=== PATIENT | female | born 1990 | race Caucasian/White ===

== ENCOUNTER 2016-03-28 06:26 | Inpatient (IN) | payer OTHER ==
[~2016-03-28] VITALS: Ht 165.1 cm; Wt 72.1 kg
[2016-03-28] VITALS (17 sets, daily range): BP systolic 83–137; BP diastolic 59–92; PULSE 69–264; RESP 16–20; TEMP 97.4–99
[~2016-03-28 06:26] MED LIST: ALBU1AER INH; FIORIC PO
[2016-03-28 07:53] LABS: AUTOMATED NEUTROPHIL # 5.2 TH/MM3 (1.8-7.7); BASOPHIL % 0.4 % (0.0-2.0); EOSINOPHIL # 0.1 TH/MM3 (0-0.4); EOSINOPHIL % 0.7 % (0.0-4.0); HEMATOCRIT 35.8 % (35.0-46.0); HEMO FLAGS DIFF FINAL; LYMPH % 24.2 % (9.0-44.0); LYMPHOCYTE # 1.9 TH/MM3 (1.0-4.8); MEAN CORPUSCULAR HGB CONC 34.8 % (32.0-36.0); MONO % 7.5 % (0.0-8.0); NEUT % 67.2 % (16.0-70.0); PLATELET COUNT 182 TH/MM3 (150-450); RED BLOOD COUNT 4.03 MIL/MM3 (4.00-5.30); RED CELL DISTRIBUTION WIDTH 13.3 % (11.6-17.2); WHITE BLOOD COUNT 7.8 TH/MM3 (4.0-11.0)
[2016-03-28] MEDS ORDERED: PREN29TA PO (07:54)
[2016-03-28] MEDS ORDERED: FERR1TAB36 PO (07:54)
[2016-03-28 08:19] LABS: BACTERIA, URINE MOD /hpf; BLOOD, URINE NEG (NEG); GLUCOSE,URINE NEG (NEG); KETONE, URINE NEG (NEG); MUCUS URINE FEW /lpf (OCC); NITRITE,URINE NEG (NEG); PH, URINE 6.5 (5.0-8.5); SQUAMOUS EPITHELIAL CELL URINE 15 /hpf (0-5); URINE COLOR YELLOW (YELLW/STRAW)
[2016-03-28 08:23] LABS: COMMENT (UR) CULTURE INDICATED; CULTURE IF INDICATED CULTURE INDICATED
[2016-03-28] MEDS ORDERED: CITRIC ACID-SODIUM CITRATE LIQ 30 ML UDC PO SCH (08:30)
[2016-03-28] MEDS ORDERED: NS 1000 ML IV PRN (08:30)
[2016-03-28] MEDS ORDERED: OXYTOCIN 30 UNITS/NS 500ML PREMIX IV SCH (08:30)
[2016-03-28] MEDS ORDERED: LACTATED RINGER'S 1000 ML BOLUS IV PRN (08:30)
[2016-03-28] MEDS ORDERED: MINERAL OIL 10 ML VIAL TOP PRN (08:30)
[2016-03-28] MEDS ORDERED: OXYTOCIN 30 UNITS 500ML PREMIX IV ONE (08:30)
[2016-03-28] MEDS ORDERED: LIDOCAINE HCL 1% 50 ML VIAL INFIL PRN (08:30)
[2016-03-28] MEDS ORDERED: LIDOCAINE HCL 1% 50 ML VIAL I-DERMAL PRN (08:30)
[2016-03-28] MEDS ORDERED: NS 500 ML BOLUS IV PRN (08:30)
[2016-03-28] MEDS ORDERED: ONDANSETRON HCL 4 MG/2 ML VIAL IV PRN (08:30)
[2016-03-28] MEDS: LACTATED RINGER'S 1000 ML IV SCH ×2 (09:14→13:37)
[2016-03-28] MEDS ORDERED: METHYLERGONOVINE MALEATE 0.2 MG/ML VIAL ONE (11:03)
[2016-03-28] MEDS ORDERED: SODIUM CHLORIDE 0.9% FLUSH 5 ML FLUSH IV PRN (11:15)
[2016-03-28] MEDS ORDERED: ZOLPIDEM TARTRATE 5 MG TAB PO PRN (11:15)
[2016-03-28] MEDS ORDERED: BENZOCAINE 20% TOPICAL SPRAY 60 ML CAN TOPICAL PRN (11:15)
[2016-03-28] MEDS ORDERED: WITCH HAZEL 50%/GLYCERIN 12.5% 40 PAD JAR TOPICAL PRN (11:15)
[2016-03-28] MEDS ORDERED: oxyCODONE/ACETAMINOPHEN 5 MG/325 MG TAB PO PRN ×2 (11:15)
[2016-03-28] MEDS ORDERED: IBUPROFEN 600 MG TAB PO PRN (11:15)
[2016-03-28] MEDS ORDERED: ACETAMINOPHEN 325 MG TAB PO PRN (11:15)
[2016-03-28] MEDS ORDERED: ALUMINUM/MAGNESIUM/SIMETH 30 ML CUP PO PRN (11:15)
[2016-03-28] MEDS ORDERED: DOCUSATE SODIUM 50 MG/SENNA 8.6 MG TAB PO PRN (11:15)
[2016-03-28] MEDS ORDERED: ONDANSETRON ODT 4 MG TAB PO PRN (11:15)
--- NOTE | 2016-03-28 11:19 | MH ---
cc: BLAINE SHIELDS DATE OF ADMISSION: 03/28/2016 ADMITTING DIAGNOSIS Term . HISTORY OF PRESENT ILLNESS The patient is a 25-year-old white female para 1-0-0-1 with a LMP of 06/24/2015, EDC of 03/30/2016. Her course was benign. PAST MEDICAL HISTORY PREVIOUS SURGERY None. MEDICATIONS Vitamins. ALLERGIES None. TRANSFUSIONS None. SOCIAL HISTORY History of migraines. OBSTETRICAL HISTORY One previous vaginal delivery. SOCIAL HISTORY She is , student, education major. Alcohol, tobacco and drugs are none. PHYSICAL EXAMINATION GENERAL: A gravid white female in no distress. HEENT EXAM: Normal. CHEST: Clear. HEART: Regular rate. BREASTS: Symmetrical. ABDOMEN: Gravid. EFW is 3400 grams. PELVIC EXAM: The cervix is 5, 70. Vertex intact to palpation. LABORATORY DATA Strep culture negative. AROM performed. PLAN Pitocin induction. Epidural anesthesia. Anticipate vaginal delivery. Should she have failure to progress or distress, will need . MD NANCY Zhu/LOTUS /8:34 AM /11:00 AM DEION
[2016-03-28] MEDS ORDERED: MEASLES, MUMPS, RUBELLA VACCINE 0.5 ML VIAL SQ ONE (16:00)
[2016-03-28] MEDS ORDERED: DIPHTH/TETANUS/ACEL PERTUSSIS (BOOSTER) 0.5 ML VIAL/PFS IM ONE (16:00)
[2016-03-28] MEDS ORDERED: SODIUM CHLORIDE 0.9% FLUSH 5 ML FLUSH IV SCH (21:00)
[2016-03-29 04:54] LABS: AUTOMATED NEUTROPHIL # 8.1 TH/MM3 (1.8-7.7); BASOPHIL % 0.3 % (0.0-2.0); EOSINOPHIL # 0.1 TH/MM3 (0-0.4); EOSINOPHIL % 0.6 % (0.0-4.0); HEMATOCRIT 35.1 % (35.0-46.0); HEMO FLAGS DIFF FINAL; LYMPH % 21.8 % (9.0-44.0); LYMPHOCYTE # 2.5 TH/MM3 (1.0-4.8); MEAN CELL VOLUME 90.9 FL (80.0-100.0); MEAN CORPUSCULAR HEMOGLOBIN 30.2 PG (27.0-34.0); MEAN CORPUSCULAR HGB CONC 33.2 % (32.0-36.0); MONO % 7.3 % (0.0-8.0); PLATELET COUNT 183 TH/MM3 (150-450); RED BLOOD COUNT 3.87 MIL/MM3 (4.00-5.30); RED CELL DISTRIBUTION WIDTH 13.6 % (11.6-17.2); WHITE BLOOD COUNT 11.6 TH/MM3 (4.0-11.0)
[2016-03-29 07:11] VITALS: BP 96/62; PULSE 80; RESP 16; TEMP 98.6
[2016-03-29] MEDS: LACTATED RINGER'S 1000 ML IV SCH (08:17)
--- NOTE | 2016-03-29 12:13 | HHI.DCPOC ---
Discharge Care Plan Report Symptoms to Your Doctor -Temperate above 100.5 degrees -Redness, of incision or excessive or foul smelling drainage -Unusual pain or calf pain -Increased vaginal bleeding -Painful or difficulty urinating -Feelings of extreme sadness or anxiety after 2 weeks Goals to Promote Your Health * To prevent worsening of your condition and complications * To maintain your health at the optimal level Directions to Meet Your Goals Take your medications as prescribed Follow your dietary instruction Follow activity as directed Ensure plenty of rest for recovery Drink fluids for hydration Keep your appointments as scheduled Take your immunizations and boosters as scheduled If your symptoms worsen call your PCP, if no PCP go to Urgent Care Center or Emergency Room Smoking is Dangerous to Your Health. Avoid second hand smoke Call the 24-hour crisis hotline for domestic abuse at Isaac Pandey MD Mar 29, 2016 12:13
--- NOTE | 2016-04-06 07:43 | MD ---
cc: BLAINE SHIELDS M.D. ADMISSION DATE: 03/28/2016 DISCHARGE DATE: 03/29/2016 ADMISSION DIAGNOSIS Term . DISCHARGE DIAGNOSIS Term , delivered. HISTORY OF PRESENT ILLNESS The patient is a 25-year-old white female, para 1-0-0-1, with an LMP of 06/24/2015, EDC of 03/30/2016. Her course was benign. Blood type positive. Strep culture negative. HOSPITAL COURSE Admitted for induction of labor due to term status and extremely favorableable cervix. She was admitted on the morning of 03/28/2016, received Pitocin induction, AROM and promptly delivered 3 hours later, a viable, vigorous male over an intact perineum. did well, was discharged home in excellent condition on 03/29/2016. She was carefully instructed in perineal and circumcision care. The baby had a pustular rash, diagnosed with melanosis pustules which were felt to be benign and would heal spontaneously leaving mild pigmentation with no treatment needed. He was cleared for circumcision by the pediatricians. She was carefully instructed to return to see me in 6 weeks and to call if any abnormal symptoms and to call if any problems with circumcision healing. MD NANCY Zhu/LOTUS /12:29 PM /7:30 AM [email or web address]
== END 2016-03-29 14:51 | disposition home or self-care (01) | DRG 775 ==
LOC: H2EA 06:26 → H1EA 13:36
PROVIDERS: ADMIT Obstetrics & Gynecology; ATTEND Obstetrics & Gynecology
PROC: 3E033VJ Introduction of Other Hormone into Peripheral Vein, Percutaneous Approach (ICD-10-PCS; principal; 2016-03-28)
PROC: 10E0XZZ Delivery of Products of Conception, External Approach (ICD-10-PCS; 2016-03-28)
PROC: 0HQ9XZZ Repair Perineum Skin, External Approach (ICD-10-PCS; 2016-03-28)
DX: O70.0 First degree perineal laceration during delivery (principal); Z37.0 Single live birth; Z3A.39 39 weeks gestation of pregnancy
CPT/HCPCS: 59025; 81001; 85025; 86900; 86901; 87086; J2210; J2590; J3010; J7120